=== PATIENT | female | born 1980 | race Caucasian/White ===

== ENCOUNTER 2021-10-23 13:53 | Inpatient (IN) | payer OTHER ==
[~2021-10-23] VITALS: Ht 172.7 cm; Wt 58.1 kg
[2021-10-23 15:37] LABS: HEMOGLOBIN 14.5 gm/dl (12.3-15.3); RED BLOOD COUNT 4.49 M/UL (4.00-5.10); WHITE BLOOD COUNT 11.7 K/UL (4.5-11.0)
[2021-10-23 16:14] LABS: BUN/CREATININE RATIO 45 (0-10)
[2021-10-23] MEDS ORDERED: VOLTAREN EC 7575 MG PO (18:04)
[2021-10-23] MEDS ORDERED: BACLOFEN20 MG PO (18:04)
[2021-10-23] MEDS ORDERED: PREGABALIN150 MG PO (18:04)
[2021-10-23] MEDS ORDERED: MODAFINIL100 MG PO (18:04)
[2021-10-23] MEDS ORDERED: NICODERM CQ1 EAC2 TD (18:05)
[2021-10-23] MEDS ORDERED: BUPROPION HCL150 MG PO (18:05)
[2021-10-24 01:44] LABS: HEMOGLOBIN 13.4 gm/dl (12.3-15.3); RED BLOOD COUNT 4.13 M/UL (4.00-5.10); WHITE BLOOD COUNT 9.6 K/UL (4.5-11.0)
[2021-10-24 02:10] LABS: BUN/CREATININE RATIO 47 (0-10)
[2021-10-25 05:26] LABS: BUN/CREATININE RATIO 19 (0-10)
[2021-10-26 07:00] LABS: RED BLOOD COUNT 4.13 M/UL (4.00-5.10); WHITE BLOOD COUNT 7.2 K/UL (4.5-11.0)
[2021-10-26 07:25] LABS: BUN/CREATININE RATIO 15 (0-10)
== END 2021-10-26 14:25 | disposition home or self-care (01) | DRG 917 ==
LOC: ER1 13:53 → CCU 17:53 → CDU 17:53 → CCU 19:41
PROVIDERS: ADMIT Internal Medicine
DX: T42.8X1A Poisoning by antiparkinsonism drugs and other central muscle-tone depressants, accidental (unintentional), initial encounter (principal); G92.8 Other toxic encephalopathy; T43.291A Poisoning by other antidepressants, accidental (unintentional), initial encounter; Z20.822 Contact with and (suspected) exposure to COVID-19; G89.29 Other chronic pain; F17.210 Nicotine dependence, cigarettes, uncomplicated; F39 Unspecified mood [affective] disorder; E86.0 Dehydration; R00.1 Bradycardia, unspecified; F19.10 Other psychoactive substance abuse, uncomplicated; E87.6 Hypokalemia; T43.621A Poisoning by amphetamines, accidental (unintentional), initial encounter; Z90.710 Acquired absence of both cervix and uterus
CPT/HCPCS: 36415; 70450; 71045; 80048; 80053; 80307; 81001; 82550; 82553; 83605; 83735; 84132; 84484; 84703; 85025; 85027; 87040; 87086; 93005; 96374; 96376; 99285; C9113; G0378; G0480; J0696; J1650; J2250; J2405; J7030; U0002